=== PATIENT | female | born 1960 | race Caucasian/White ===

== ENCOUNTER → 2017-02-23 | Outpatient (CLI) | payer OTHER ==
[~2017-02-23] MED LIST: CALCIUM OYSTER500 MG PO; FISHOIL; IBUPROFEN 600600 M1 PO; LOW DOSE ASPIRI81 M1 PO; MULTIVITAMINS; NORCO 5-325 TA1 EACH PO; VITAMIN D1000 UNI1 PO; ZOFRAN ODT4 MG PO
== END ==
LOC: RAD 01:19
DX: Z12.31 Encounter for screening mammogram for malignant neoplasm of breast (principal)

== ENCOUNTER → 2017-09-21 | Outpatient (CLI) | payer OTHER | LOC: RAD 05:47 | DX: K21.9 Gastro-esophageal reflux disease without esophagitis (principal); K44.9 Diaphragmatic hernia without obstruction or gangrene; M81.8 Other osteoporosis without current pathological fracture ==

== ENCOUNTER → 2017-09-28 | Outpatient (CLI) | payer OTHER | LOC: RAD 15:42 | DX: S83.92XA Sprain of unspecified site of left knee, initial encounter (principal); M25.572 Pain in left ankle and joints of left foot; Z91.81 History of falling ==

== ENCOUNTER → 2017-10-25 | Outpatient (CLI) | payer OTHER | LOC: MRI 11:18 | DX: S92.025A Nondisplaced fracture of anterior process of left calcaneus, initial encounter for closed fracture (principal); X58.XXXA Exposure to other specified factors, initial encounter; Y93.89 Activity, other specified; Y92.89 Other specified places as the place of occurrence of the external cause; Y99.8 Other external cause status ==

== ENCOUNTER → 2018-02-19 | Outpatient (CLI) | payer OTHER | LOC: ULTRA 02-14 10:07 → NUC 07:41 | DX: M81.0 Age-related osteoporosis without current pathological fracture (principal); N85.8 Other specified noninflammatory disorders of uterus; Z78.0 Asymptomatic menopausal state; Z80.49 Family history of malignant neoplasm of other genital organs ==

== ENCOUNTER → 2018-02-25 | Outpatient (CLI) | payer OTHER | LOC: RAD | DX: Z12.31 Encounter for screening mammogram for malignant neoplasm of breast (principal) ==

== ENCOUNTER → 2019-05-23 | Outpatient (CLI) | payer OTHER | LOC: RAD 14:10 | DX: Z12.31 Encounter for screening mammogram for malignant neoplasm of breast (principal) ==

== ENCOUNTER 2019-08-20 13:59 | Emergency (ER) | payer OTHER ==
[~2019-08-20] VITALS: Ht 157.5 cm; Wt 72.6 kg
[2019-08-20] MEDS ORDERED: GUAIFEN-CODEINE10 ML PO (15:50)
[2019-08-20 15:55] VITALS: BP 113/77
[2019-08-20] MEDS ORDERED: AUGMENTIN 875-1 EACH PO (16:05)
== END 2019-08-20 15:55 | disposition home or self-care (01) ==
LOC: ER 13:59
DX: J06.9 Acute upper respiratory infection, unspecified (principal); M81.0 Age-related osteoporosis without current pathological fracture; Z79.82 Long term (current) use of aspirin; Z79.899 Other long term (current) drug therapy; Z88.5 Allergy status to narcotic agent

== ENCOUNTER → 2019-10-23 | Outpatient (CLI) | payer OTHER ==
[~2019-10-23] MED LIST changes: +AUGMENTIN 875-1 EACH PO; +GUAIFEN-CODEINE10 ML PO
[2019-10-23 09:42] LABS: ABSOLUTE NEUTROPHILS 3.5 thou/uL (1.4-8.2); BASOPHILS 0.6 % (0.0-2.0); EOSINOPHILS 1.1 % (0.0-3.0); HEMATOCRIT 39.9 % (37.0-47.0); HEMOGLOBIN 13.7 gm/dL (12.0-15.0); LYMPHOCYTES 25.6 % (24.0-44.0); MCH 32.2 pg (26.0-34.0); MCHC 34.4 g/dL (28.0-37.0); MCV 93.6 fL (80.0-100.0); MONOCYTES 5.8 % (1.0-8.0); PLATELET COUNT 341 thou/uL (150-400); POLYS 66.9 % (36.0-66.0); RBC 4.26 mil/uL (4.20-5.00); RDW 13.6 % (10.5-14.5); WBC 5.2 thou/uL (4.0-11.0)
[2019-10-23 10:09] LABS: ALBUMIN 4.1 g/dL (3.4-5.0); ANION GAP 8 mmol/L (7-16); BUN 13 mg/dL (7-18); CALCIUM 8.9 mg/dL (8.5-10.1); CHLORIDE 105 mmol/L (98-107); CHOLESTEROL 210 mg/dL (<200); CO2 28 mmol/L (21-32); CREATININE 0.9 mg/dL (0.6-1.0); GLUCOSE 101 mg/dL (74-106); HDL CHOLESTEROL 66 mg/dL (>40); LDL CHOLESTEROL 131 mg/dL (<100); POTASSIUM 4.2 mmol/L (3.5-5.1); SGOT 28 U/L (15-37); SGPT 40 U/L (30-65); SODIUM 141 mmol/L (136-145); TC:HDL 3.2 Ratio (Not establshd); TOTAL BILIRUBIN 0.4 mg/dL (0.2-1.0); TOTAL PROTEIN 7.2 g/dL (6.4-8.2); TRIGLYCERIDE 68 mg/dL (<150); VLDL 14 mg/dL (<40)
== END ==
LOC: RAD 09:08
PROVIDERS: Nurse Practitioner
DX: M77.31 Calcaneal spur, right foot (principal); E78.49 Other hyperlipidemia

== ENCOUNTER → 2019-11-05 | Outpatient (CLI) | payer OTHER | LOC: LABMALL 07:40 | PROVIDERS: ATTEND Nurse Practitioner | DX: M25.50 Pain in unspecified joint (principal) ==

== ENCOUNTER → 2019-11-07 | Outpatient (CLI) | payer OTHER | LOC: CAT 13:00 → LABMALL 13:00 | PROVIDERS: ATTEND Internal Medicine Rheumatology | DX: Z13.6 Encounter for screening for cardiovascular disorders (principal); M25.50 Pain in unspecified joint; I25.10 Atherosclerotic heart disease of native coronary artery without angina pectoris; E78.00 Pure hypercholesterolemia, unspecified ==

== ENCOUNTER → 2020-05-20 | Outpatient (CLI) | payer OTHER | LOC: NUC 09:13 | PROVIDERS: ATTEND Nurse Practitioner | DX: M81.0 Age-related osteoporosis without current pathological fracture (principal) ==

== ENCOUNTER → 2020-06-15 | Outpatient (CLI) | payer OTHER | LOC: RAD 05-25 10:14 | PROVIDERS: ATTEND Nurse Practitioner | DX: Z12.31 Encounter for screening mammogram for malignant neoplasm of breast (principal) ==

== ENCOUNTER → 2020-11-03 | Outpatient (CLI) | payer OTHER ==
[2020-11-03 09:12] LABS: ABSOLUTE NEUTROPHILS 2.5 thou/uL (1.4-8.2); BASOPHILS 0.8 % (0.0-2.0); EOSINOPHILS 1.9 % (0.0-3.0); HEMATOCRIT 38.8 % (37.0-47.0); HEMOGLOBIN 13.3 gm/dL (12.0-15.0); LYMPHOCYTES 35.3 % (24.0-44.0); MCH 31.9 pg (26.0-34.0); MCHC 34.3 g/dL (28.0-37.0); MCV 92.9 fL (80.0-100.0); MONOCYTES 7.3 % (1.0-8.0); PLATELET COUNT 323 thou/uL (150-400); POLYS 54.7 % (36.0-66.0); RBC 4.18 mil/uL (4.20-5.00); RDW 13.3 % (10.5-14.5); WBC 4.6 thou/uL (4.0-11.0)
[2020-11-03 09:30] LABS: ALBUMIN 3.8 g/dL (3.4-5.0); ANION GAP 10 mmol/L (7-16); BUN 10 mg/dL (7-18); CALCIUM 9.1 mg/dL (8.5-10.1); CHLORIDE 106 mmol/L (98-107); CHOLESTEROL 192 mg/dL (<200); CO2 27 mmol/L (21-32); CREATININE 0.8 mg/dL (0.6-1.0); GLUCOSE 108 mg/dL (74-106); HDL CHOLESTEROL 54 mg/dL (>40); LDL CHOLESTEROL 120 mg/dL (<100); SGOT 17 U/L (15-37); SGPT 28 U/L (30-65); SODIUM 143 mmol/L (136-145); TC:HDL 3.6 Ratio (Not establshd); TOTAL BILIRUBIN 0.5 mg/dL (0.2-1.0); TOTAL PROTEIN 7.1 g/dL (6.4-8.2); TRIGLYCERIDE 91 mg/dL (<150); VLDL 18 mg/dL (<40)
== END ==
LOC: LAB 08:28
PROVIDERS: ATTEND Nurse Practitioner
DX: Z13.220 Encounter for screening for lipoid disorders (principal); Z00.00 Encounter for general adult medical examination without abnormal findings; M81.0 Age-related osteoporosis without current pathological fracture; E78.49 Other hyperlipidemia

== ENCOUNTER → 2020-12-17 | Outpatient (CLI) | payer OTHER | LOC: ULTRA 12:52 | PROVIDERS: ATTEND Nurse Practitioner | DX: R92.2 Inconclusive mammogram (principal); Z85.3 Personal history of malignant neoplasm of breast ==

== ENCOUNTER 2021-01-12 14:10 | Emergency (ER) | payer OTHER ==
[~2021-01-12] VITALS: Ht 157.5 cm; Wt 73.0 kg
[2021-01-12 14:14] VITALS: BP 121/81
== END 2021-01-12 15:18 | disposition home or self-care (01) ==
LOC: ER 14:10
PROVIDERS: Student in an Organized Health Care Education/Training Program
DX: R51.9 Headache, unspecified (principal); Z20.822 Contact with and (suspected) exposure to COVID-19; M54.2 Cervicalgia; M54.9 Dorsalgia, unspecified; Z90.89 Acquired absence of other organs; M81.0 Age-related osteoporosis without current pathological fracture; Z88.5 Allergy status to narcotic agent

== ENCOUNTER → 2021-02-02 | Outpatient (CLI) | payer OTHER ==
[~2021-02-02] MED LIST changes: +ALIVE ONCE DAI1 EACH PO; -CALCIUM OYSTER500 MG PO; +NASACORT10.8 ML NASAL; +PROBIOTIC1 EAC7 PO; +TUMS X-STR300 MG PO; +TURMERIC500 M2 PO; +VALTREX 500 MG500 M1 PO; +VITAMIN D325 MC3 PO
== END ==
LOC: LAB 08:26
PROVIDERS: ATTEND Student in an Organized Health Care Education/Training Program
DX: Z01.812 Encounter for preprocedural laboratory examination (principal); Z20.822 Contact with and (suspected) exposure to COVID-19

== ENCOUNTER → 2021-02-04 | Outpatient (CLI) | payer OTHER ==
[~2021-02-04] VITALS: Ht 157.5 cm; Wt 73.0 kg
--- NOTE | ~2021-02-04 | P ---
[facility] [place] [address] PROCEDURE REPORT Name: REENA LONG [id number] Admission: 02/04/21 Attend Phys: Andrew Pichardo Discharge: Date of : 58 Report #: [id number] THIS REPORT FOR: cc: Stephanie Argueta DNP, Mary E. DNP McElhinney, Christian C. MD ~ cc: Troy Amador MD DATE OF SERVICE: 02/04/2021 PROCEDURE PERFORMED: Colonoscopy with biopsies. HISTORY OF PRESENT ILLNESS: The patient is a 60-year-old female, last colonoscopy 5 years ago in which adenomatous polyps were removed. She is here for routine followup. She denies any symptoms other than intermittent heartburn type symptoms. No family history of colon cancer. DESCRIPTION OF PROCEDURE: The risks and benefits of the procedure were explained to the patient, those risks including but not limited to bleeding, perforation and the risk of sedation. She understood these risks and gave informed consent. Sedation was given using propofol per Anesthesia. Next, a digital rectal exam was initially performed, which was normal. Next, using a standard Olympus colonoscope, the scope was placed in the patient's anus and advanced under direct vision to the cecum. The overall prep was excellent. The cecum and ileocecal valve were normal in appearance. Ascending, transverse and descending colon were normal. A few small diverticula were noted in the sigmoid colon. No evidence of inflammation. Two 3 mm sessile polyps were also noted in the sigmoid colon, both removed with cold forceps. The rectal mucosa was normal. On retroflexion, no abnormalities were noted. The scope was then withdrawn and the procedure terminated. The patient tolerated the procedure well. IMPRESSION: 1. Two small colonic polyps. 2. Sigmoid diverticulosis. 3. Otherwise, normal colonoscopy. RECOMMENDATIONS: 1. Await biopsy results. 2. If polyps are hyperplastic, repeat in 10 years. If adenomatous polyps, repeat in 5 years. 3. We discussed a trial of PPI therapy for heartburn as she is only taking Tums at this time. [facility] [address] [place] [address] PROCEDURE REPORT Name: REENA LONG Room #: REG [facility] Geo#: [id number] Admission: 02/04/21 Attend Phys: Andrew Pichardo Discharge: Date of : 58 Report #: [id number] Thank you for allowing me to participate in her care. By: [id number] Andrew Rosas MD /nt
--- NOTE | 2021-02-08 12:07 | PATH ---
[facility] [address] [address] PATHOLOGY RPT PROCEDURE Name: MIANKelyPATTI Room #: REG [facility].#: [id number] Admission: 02/04/21 Date of : 58 Discharge: Report #: [id number] Path Case #: [id number] [facility] Accession Number: [id number] . 01 Material submitted: . sigmoid colon - SIGMOID COLON POLYP X2 . 01 Clinical history: . SCREENING, HISTORY OF POLYPS, HX OF BREAST CA COLONOSCOPY . 02 Diagnosis: Polyp x2, sigmoid colon, endoscopic biopsy: - Minute superficial fragment of hyperplastic mucosa. - Negative for dysplasia. 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 02 Electronically signed: . Brenda Kowalski MD, Pathologist NPI- [id number] . 01 Gross description: . The specimen is received in formalin, labeled "Mianl, Patti, sigmoid colon polyp". Received are multiple minute fragments of pale rosenbaum tissue measuring 0.4 x 0.2 x 0.1 cm in aggregate dimensions. The specimen is filtered and entirely submitted in cassette A1. ([facility]; 02/04/2021) NRI/NRI 02/04/2021 1759 Local . 02 Pathologist provided ICD-10: Z12.11, Z86.010, Z85.3 . 02 CPT . 431896 Specimen Comment: A courtesy copy of this report has been sent to [phone] Specimen Comment: Report sent to DR. MCHUGH Performed at: [address], [place] [id number] MD Hung Lemos MD Phone: [phone] Performed at: [address] [id number] MD Brenda Kowalski MD Phone: [phone]
== END | disposition home or self-care (01) ==
LOC: GI 07:09
PROVIDERS: ATTEND Specialist
DX: Z12.11 Encounter for screening for malignant neoplasm of colon (principal); Z86.010 Personal history of colon polyps; K63.5 Polyp of colon; K57.30 Diverticulosis of large intestine without perforation or abscess without bleeding; K21.9 Gastro-esophageal reflux disease without esophagitis; M81.0 Age-related osteoporosis without current pathological fracture; F32.9 Major depressive disorder, single episode, unspecified; F41.9 Anxiety disorder, unspecified; Z98.890 Other specified postprocedural states; Z79.899 Other long term (current) drug therapy; Z85.3 Personal history of malignant neoplasm of breast
CPT/HCPCS: 62110; 62900

== ENCOUNTER → 2021-06-17 | Outpatient (CLI) | payer OTHER | LOC: BC 12:42 | PROVIDERS: ATTEND Family Medicine | DX: Z12.31 Encounter for screening mammogram for malignant neoplasm of breast (principal) ==